=== PATIENT | female | born 1955 | race Caucasian/White ===

== ENCOUNTER → 2017-01-08 | Outpatient (CLI) | payer OTHER ==
[~2017-01-08] MED LIST: LEXAPRO 10MG10 MG PO; PRAVACHOL 20MG20 MG PO
== END ==
LOC: MC.RAD 07:20
DX: Z12.31 Encounter for screening mammogram for malignant neoplasm of breast (principal)

== ENCOUNTER → 2018-05-01 | Outpatient (CLI) | payer OTHER | LOC: MC.RAD 08:24 | DX: Z12.31 Encounter for screening mammogram for malignant neoplasm of breast (principal) ==

== ENCOUNTER 2019-04-17 06:23 | Day surgery (SDC) | payer OTHER ==
[~2019-04-17] VITALS: Ht 157.5 cm; Wt 67.8 kg
[2019-04-17] MEDS ORDERED: CALCIUM CARBON650 M2 PO (06:43)
[2019-04-17] MEDS ORDERED: PRAVACHOL 40MG40 MG PO (06:43)
[2019-04-17 06:44] VITALS: BP 136/82; PULSE 62; TEMP 98
--- NOTE | 2019-04-17 08:15 | NUR ---
Dr. Loza at bedside reviewing procedure with of patient.
[2019-04-17 08:30] VITALS: BP 129/76; PULSE 54; TEMP 97.6
--- NOTE | 2019-04-17 08:40 | NUR ---
Pt arrived back from procedure via cart with Ailyn BECKFORD. Pt ambulated to chair with touch assist. Received report from Ailyn Perry RN. Pt awake and oriented but drowsy. VSS and WNL. Water brought per pt's request. Pt denies pain or nausea at this time. Call light within reach and at bedside.
[2019-04-17 08:45] VITALS: BP 129/77; PULSE 50
--- NOTE | 2019-04-17 08:45 | NUR ---
Pt sitting up comfortably in chair. She still states that she is drowsy, but she is alert and oriented and not falling back asleep. Pt was successfully able to drink water without c/o nausea. VSS - pt's heart rate in low 50's and upper 40's which per Endo RN is what pt's baseline upon admission and throughout procedure. Pt denies dizziness or lightheadedness and pt is pink and looks well perfused.
[2019-04-17 09:00] VITALS: BP 128/71; PULSE 50
--- NOTE | 2019-04-17 09:00 | NUR ---
Pt states that she is ready to go home. Pt meets criteria for discharge. Reviewied discharge information with patient and including educational packet. They had no further concerns/questions.
== END 2019-04-17 09:09 | disposition home or self-care (01) ==
LOC: SDCO 06:23
DX: Z12.11 Encounter for screening for malignant neoplasm of colon (principal); F33.41 Major depressive disorder, recurrent, in partial remission; E66.3 Overweight; Z68.27 Body mass index [BMI] 27.0-27.9, adult; E78.5 Hyperlipidemia, unspecified; J30.2 Other seasonal allergic rhinitis; N62 Hypertrophy of breast; M85.80 Other specified disorders of bone density and structure, unspecified site; M17.0 Bilateral primary osteoarthritis of knee; E78.00 Pure hypercholesterolemia, unspecified; Z82.3 Family history of stroke; Z23 Encounter for immunization; Z82.49 Family history of ischemic heart disease and other diseases of the circulatory system
CPT/HCPCS: J2704; J3010; J7120

== ENCOUNTER → 2019-06-24 | Outpatient (CLI) | payer OTHER ==
[~2019-06-24] MED LIST changes: +CALCIUM CARBON650 M2 PO; +PRAVACHOL 40MG40 MG PO
== END ==
LOC: MC.RAD 05-16 07:15
DX: Z12.31 Encounter for screening mammogram for malignant neoplasm of breast (principal)

== ENCOUNTER → 2020-06-25 | Outpatient (CLI) | payer MEDICARE | LOC: MC.RAD 07:47 | DX: Z12.31 Encounter for screening mammogram for malignant neoplasm of breast (principal) ==

== ENCOUNTER → 2021-06-28 | Outpatient (CLI) | payer MEDICARE | LOC: MC.RAD 07:48 | DX: Z12.31 Encounter for screening mammogram for malignant neoplasm of breast (principal) ==

== ENCOUNTER → 2022-08-14 | Outpatient (CLI) | payer MEDICARE | LOC: MC.RAD 07:45 | DX: Z12.31 Encounter for screening mammogram for malignant neoplasm of breast (principal) ==

== ENCOUNTER → 2023-09-05 | Outpatient (CLI) | payer MEDICARE | LOC: MC.RAD 09:58 | DX: Z12.31 Encounter for screening mammogram for malignant neoplasm of breast (principal) ==